=== PATIENT | female | born 1945 | race Caucasian/White ===

== ENCOUNTER 2016-09-15 07:13 | Day surgery (SDC) | payer MEDICARE, OTHER ==
[2016-09-15] MEDS ORDERED: Lactated Ringers 1,000 ML IV SCH (07:30)
[2016-09-15] MEDS ORDERED: fentaNYL 100 MCG/2 ML SDV ONE (07:54)
[2016-09-15] MEDS ORDERED: Propofol 200 MG/20 ML SDV ONE ×3 (07:54→09:04)
[2016-09-15] MEDS ORDERED: Albuterol/Ipratropium 3.0-0.5 MG/3 ML Neb Soln NEB ONE (08:15)
[2016-09-15 11:04] VITALS: BP 127/81
--- NOTE | 2016-09-16 07:21 | OR ---
DATE OF PROCEDURE: 09/15/2016 PREOPERATIVE DIAGNOSIS: Colon cancer screening. POSTOPERATIVE DIAGNOSIS: Sessile right colon polyp. PROCEDURE PERFORMED: Colonoscopy to the cecum with snare cautery polypectomy and biopsy resection of right colon polyp. ANESTHESIA: IV anesthesia with monitored anesthesia care. INDICATIONS: This 70-year-old white female is referred for a colonoscopy for colon cancer screening. Her last colonoscopic exam was done more than ten years ago. She did have diarrhea, but this has resolved after treatment with an antibiotic. I counseled her for a colonoscopy with possible biopsy and/or polypectomy including risks and alternatives, and she gave her informed consent to proceed. DESCRIPTION OF PROCEDURE: The patient was placed in the left lateral decubitus position. IV anesthesia was administered by the Anesthesia Service. Time-out was held. A rectal exam was performed, which was unremarkable. The flexible video Olympus colonoscope was introduced through her anus, up her rectum, and out her colon all way to the cecum. Once the cecum was reached, the scope was slowly withdrawn examining the mucosa throughout. In the right colon, we saw a sessile polyp, this was on the back side of a fold , this was very difficult to remove. We placed a snare about it and removed a large portion of it. The biopsy forceps were used to remove the rest of it. This however needs to be checked again in a fairly early for possible local recurrence. The scope was then withdrawn examining the mucosa throughout. No additional mucosal abnormalities were noted. The scope was retroflexed in the rectum with the distal rectum appearing unremarkable. The scope was straightened and removed. She tolerated the procedure well. We will order a repeat colonoscopy in [place] in six months. Vic Peace MD /[id number] [id number]
== END 2016-09-15 11:00 | disposition home or self-care (01) ==
LOC: JP.SDS 07:13
PROVIDERS: ATTEND Surgery
PROC: 0DBK8ZX Excision of Ascending Colon, Via Natural or Artificial Opening Endoscopic, Diagnostic (ICD-10-PCS; principal; 2016-09-15)
PROC: 0DBK8ZX Excision of Ascending Colon, Via Natural or Artificial Opening Endoscopic, Diagnostic (ICD-10-PCS; 2016-09-15)
DX: Z12.11 Encounter for screening for malignant neoplasm of colon (principal); D12.2 Benign neoplasm of ascending colon
CPT/HCPCS: 45380; 45385; 88305; J2704; J3010; J7620